=== PATIENT | female | born 1940 | race Caucasian/White ===

== ENCOUNTER 2022-07-13 11:51 | Inpatient (IN) ==
[2022-07-13 17:33] LABS: PCO2 Arterial 29 mmHg (35-45); PO2 Arterial 66 mmHg (80-100)
[2022-07-13 17:45] LABS: Albumin 3.5 g/dL (3.2-5.2); Calcium 9.2 mg/dL (8.6-10.3); Potassium 4.3 mmol/L (3.5-5.0); Total Bilirubin 0.9 mg/dL (0.2-1.0)
[2022-07-13 17:51] LABS: Albumin/Globulin Ratio 1.4 (1-3); Creatinine, Serum 1.83 mg/dL (0.51-0.95); Globulin 2.5 g/dL (2-4); eGFR CKD-EPI 27.6 (>60)
[2022-07-13 20:08] LABS: ABS Basophils 0.1 10^3/ul (0-0.2); ABS Lymphocytes 1.5 10^3/ul (1.0-4.8); ABS Monocytes 1.1 10^3/ul (0-0.8); ABS Neutrophils 8.5 10^3/ul (1.5-7.7); Eosinophil % 0.1 %; Hematocrit 38 % (35-47); Hemoglobin 12.4 g/dL (12.0-16.0); Lymphocyte % 13.2 %; Mean Corpuscular HGB Conc 33 g/dL (31-36); Mean Corpuscular Hemoglobin 30 pg (27-31); Mean Corpuscular Volume 93 fL (80-97); Mean Platelet Volume 8.3 fL (7.4-10.4); Platelet Count 281 10^3/uL (150-450); Red Cell Distribution Width 16 % (10-15); White Blood Count 11.1 10^3/uL (3.5-10.8)
[2022-07-13 20:32] LABS: High Sensitivity Troponin 1 Hr 11 pg/mL (<15)
[2022-07-13] MEDS ORDERED: Heparin DRIP 25,000 UNITS BAG 25,000 UNITS/500 ML BAG IV SCH (20:45)
[2022-07-13 21:33] LABS: ABS Basophils 0.1 10^3/ul (0-0.2); ABS Lymphocytes 1.7 10^3/ul (1.0-4.8); ABS Monocytes 1.1 10^3/ul (0-0.8); Eosinophil % 0.1 %; Hematocrit 38 % (35-47); Hemoglobin 12.6 g/dL (12.0-16.0); Lymphocyte % 15.8 %; Mean Corpuscular HGB Conc 33 g/dL (31-36); Mean Corpuscular Hemoglobin 31 pg (27-31); Mean Corpuscular Volume 94 fL (80-97); Mean Platelet Volume 8.6 fL (7.4-10.4); Platelet Count 280 10^3/uL (150-450); Red Blood Count 4.07 10^6 /uL (3.70-4.87); Red Cell Distribution Width 16 % (10-15); White Blood Count 10.9 10^3/uL (3.5-10.8)
[2022-07-13] MEDS ORDERED: Heparin 5000 UNITS/ML 1 mL VIAL IV SCH (22:00)
[2022-07-13] MEDS ORDERED: Lactated Ringers 1000 ml BAG 1,000 ML IV ONE (22:03)
[2022-07-13 22:22] LABS: eGFR CKD-EPI 24.8 (>60)
[2022-07-13 22:45] LABS: Magnesium 2.3 mg/dL (1.9-2.7)
[2022-07-13 23:04] LABS: TSH Ultra Thyroid Stim Horm 3.5 mcIU/mL (0.34-5.60)
[2022-07-14 02:15] LABS: C Reactive Protein 11.89 mg/L (<8.01)
[2022-07-14 12:03] LABS: ABS Basophils 0.1 10^3/ul (0-0.2); ABS Eosinophils 0.1 10^3/ul (0-0.6); ABS Lymphocytes 2.2 10^3/ul (1.0-4.8); ABS Monocytes 1.4 10^3/ul (0-0.8); ABS Neutrophils 8.8 10^3/ul (1.5-7.7); Eosinophil % 0.6 %; Hematocrit 41 % (35-47); Lymphocyte % 17.2 %; Mean Corpuscular HGB Conc 32 g/dL (31-36); Mean Corpuscular Hemoglobin 30 pg (27-31); Mean Corpuscular Volume 94 fL (80-97); Mean Platelet Volume 8.7 fL (7.4-10.4); Nucleated Red Blood Cells % 0.1; Platelet Count 303 10^3/uL (150-450); Red Blood Count 4.31 10^6 /uL (3.70-4.87); Red Cell Distribution Width 16 % (10-15); White Blood Count 12.6 10^3/uL (3.5-10.8)
[2022-07-14 12:44] LABS: Calcium 8.9 mg/dL (8.6-10.3); Creatinine, Serum 2.43 mg/dL (0.51-0.95); Phosphorus 6.2 mg/dL (2.5-5.0); Potassium 4.4 mmol/L (3.5-5.0); eGFR CKD-EPI 19.6 (>60)
[2022-07-14 13:27] LABS: Urine Appearance Cloudy; Urine Bilirubin Negative (Negative); Urine Blood 2+ (Negative); Urine Color Amber; Urine Glucose Negative (Negative); Urine Ketones Trace (Negative); Urine Nitrite Negative (Negative); Urine Protein 2+(100 mg/dL) (Negative); Urine Specific Gravity 1.026 (1.002-1.030); Urine Urobilinogen Negative (Negative)
[2022-07-14 13:43] LABS: Urine Bacteria 2+ (Absent); Urine Red Blood Cell 3+(>10/hpf) (Absent); Urine Squamous Epithelial Cell Present (Absent); Urine White Blood Cell 3+(>20/hpf) (Absent)
[2022-07-14] MEDS ORDERED: Lactated Ringers 1000 ml BAG 1,000 ML IV ONE ×2 (14:19→15:51)
[2022-07-14] MEDS ORDERED: Lorazepam PYXIS KEY PRN (14:55)
[2022-07-14] MEDS ORDERED: LORazepam 2 mg VIAL 1 ml IV PUSH ONE (14:55)
[2022-07-14] MEDS ORDERED: LORazepam 2 mg VIAL 1 ml ONE (14:58)
[2022-07-14] MEDS ORDERED: Lorazepam PYXIS KEY ONE (14:58)
[2022-07-14] MEDS: Lactated Ringers 1000 ml BAG 1,000 ML IV SCH ×2 (15:50→23:40)
[2022-07-14] MEDS: Latanoprost 0.005% 2.5 ml BTL BOTH EYES SCH (20:24)
[2022-07-15 04:32] LABS: ABS Basophils 0.1 10^3/ul (0-0.2); ABS Lymphocytes 1.9 10^3/ul (1.0-4.8); ABS Monocytes 1.2 10^3/ul (0-0.8); ABS Neutrophils 8.2 10^3/ul (1.5-7.7); Eosinophil % 0.4 %; Hematocrit 34 % (35-47); Lymphocyte % 17.1 %; Mean Corpuscular HGB Conc 32 g/dL (31-36); Mean Corpuscular Hemoglobin 30 pg (27-31); Mean Corpuscular Volume 94 fL (80-97); Mean Platelet Volume 8.1 fL (7.4-10.4); Nucleated Red Blood Cells % 0.1; Platelet Count 266 10^3/uL (150-450); Red Blood Count 3.65 10^6 /uL (3.70-4.87); Red Cell Distribution Width 16 % (10-15); White Blood Count 11.4 10^3/uL (3.5-10.8)
[2022-07-15 05:12] LABS: Calcium 8.6 mg/dL (8.6-10.3); Creatinine, Serum 2.57 mg/dL (0.51-0.95); Magnesium 2.2 mg/dL (1.9-2.7); Phosphorus 6.3 mg/dL (2.5-5.0); Potassium 4.5 mmol/L (3.5-5.0); eGFR CKD-EPI 18.3 (>60)
[2022-07-15] MEDS: Lactated Ringers 1000 ml BAG 1,000 ML IV SCH ×2 (07:52→16:16)
[2022-07-15] MEDS ORDERED: Morphine 2 MG/ML SYRINGE IV ONE (11:05)
[2022-07-15] MEDS ORDERED: Heparin 5000 UNITS/ML 1 mL VIAL IV PRN (11:06)
[2022-07-15] MEDS ORDERED: Ondansetron 4 mg VIAL 2 MG/ML 2 ml VIAL IV PRN (11:17)
[2022-07-15] MEDS: Heparin DRIP 25,000 UNITS BAG 25,000 UNITS/500 ML BAG IV SCH (11:50)
[2022-07-15] MEDS ORDERED: Morphine 2 MG/ML SYRINGE ONE (14:04)
[2022-07-15] MEDS: Morphine 2 MG/ML SYRINGE IV PRN ×2 (14:05→19:59)
[2022-07-15 16:46] LABS: INR 1.73 (0.88-1.18)
[2022-07-15 17:40] LABS: Calcium 8.3 mg/dL (8.6-10.3); Potassium 4.3 mmol/L (3.5-5.0)
[2022-07-15 17:42] LABS: Creatinine, Serum 2.54 mg/dL (0.51-0.95); eGFR CKD-EPI 18.6 (>60)
[2022-07-15] MEDS: Latanoprost 0.005% 2.5 ml BTL BOTH EYES SCH (19:50)
[2022-07-15] MEDS: PTO: Multivitamins/Mins AREDS2 (NF) CAP PO SCH (19:50)
[2022-07-16] MEDS: Lactated Ringers 1000 ml BAG 1,000 ML IV SCH ×3 (00:16→17:56)
[2022-07-16 05:29] LABS: Hematocrit 34 % (35-47); Hemoglobin 10.5 g/dL (12.0-16.0); Mean Corpuscular HGB Conc 31 g/dL (31-36); Mean Corpuscular Hemoglobin 30 pg (27-31); Mean Corpuscular Volume 94 fL (80-97); Mean Platelet Volume 7.9 fL (7.4-10.4); Platelet Count 311 10^3/uL (150-450); Red Blood Count 3.56 10^6 /uL (3.70-4.87); Red Cell Distribution Width 16 % (10-15); White Blood Count 11.3 10^3/uL (3.5-10.8)
[2022-07-16 05:45] LABS: ABS Basophils 0.1 10^3/ul (0-0.2); ABS Eosinophils 0.1 10^3/ul (0-0.6); ABS Lymphocytes 1.4 10^3/ul (1.0-4.8); ABS Monocytes 1.3 10^3/ul (0-0.8); ABS Neutrophils 8.5 10^3/ul (1.5-7.7); Eosinophil % 0.6 %; Lymphocyte % 11.9 %; Nucleated Red Blood Cells % 0.1
[2022-07-16 05:57] LABS: Calcium 8.6 mg/dL (8.6-10.3); Creatinine, Serum 2.48 mg/dL (0.51-0.95); Potassium 4.7 mmol/L (3.5-5.0); eGFR CKD-EPI 19.1 (>60)
[2022-07-16] MEDS: PTO: Multivitamins/Mins AREDS2 (NF) CAP PO SCH ×2 (09:11→20:47)
[2022-07-16] MEDS ORDERED: Bismuth Subsalicylate (BTL) 525 MG/30 ML (BULK BTL) PO PRN (11:01)
[2022-07-16 13:03] LABS: Urine Chloride Concentration < 22 mmol/L; Urine Potassium Concentration 80.1 mmol/L; Urine Sodium Concentration < 18 mmol/L
[2022-07-16] MEDS ORDERED: Lidocaine PATCH 5% PATCH TRANSDERM ONE (20:29)
[2022-07-16] MEDS: Latanoprost 0.005% 2.5 ml BTL BOTH EYES SCH (20:48)
[2022-07-16] MEDS: Heparin DRIP 25,000 UNITS BAG 25,000 UNITS/500 ML BAG IV SCH (20:55)
[2022-07-17] MEDS: Morphine 2 MG/ML SYRINGE IV PRN ×3 (01:17→11:15)
[2022-07-17] MEDS: Lactated Ringers 1000 ml BAG 1,000 ML IV SCH ×3 (02:18→19:34)
[2022-07-17 06:44] LABS: Hematocrit 34 % (35-47); Hemoglobin 10.7 g/dL (12.0-16.0); Mean Corpuscular HGB Conc 32 g/dL (31-36); Mean Corpuscular Hemoglobin 30 pg (27-31); Mean Corpuscular Volume 96 fL (80-97); Mean Platelet Volume 8.2 fL (7.4-10.4); Platelet Count 319 10^3/uL (150-450); Red Blood Count 3.55 10^6 /uL (3.70-4.87); Red Cell Distribution Width 16 % (10-15); White Blood Count 13.3 10^3/uL (3.5-10.8)
[2022-07-17 06:46] LABS: ABS Basophils 0.1 10^3/ul (0-0.2); ABS Lymphocytes 1.8 10^3/ul (1.0-4.8); ABS Monocytes 1.1 10^3/ul (0-0.8); ABS Neutrophils 10.2 10^3/ul (1.5-7.7); Eosinophil % 0.3 %; Lymphocyte % 13.7 %; Nucleated Red Blood Cells % 0.1
[2022-07-17 07:15] LABS: CO2 Carbon Dioxide 17 mmol/L (22-32); Calcium 8.7 mg/dL (8.6-10.3); Chloride 102 mmol/L (101-111); Sodium 132 mmol/L (135-145)
[2022-07-17 07:18] LABS: Anion Gap 13 mmol/L (2-11)
[2022-07-17 07:20] LABS: Blood Urea Nitrogen 59 mg/dL (6-24); Creatinine, Serum 2.86 mg/dL (0.51-0.95); Glucose 120 mg/dL (70-100); eGFR CKD-EPI 16.1 (>60)
[2022-07-17 07:28] LABS: Potassium, Whole Blood 4.6 mmol/L (3.4-4.5)
[2022-07-17] MEDS: PTO: Multivitamins/Mins AREDS2 (NF) CAP PO SCH ×2 (09:05→21:49)
[2022-07-17 17:20] LABS: ALT 14 U/L (7-52); Albumin 3.3 g/dL (3.2-5.2); Albumin/Globulin Ratio 1.4 (1-3); Alkaline Phosphatase 60 U/L (35-149); Globulin 2.3 g/dL (2-4); Total Protein 5.6 g/dL (6.4-8.9)
[2022-07-17 17:32] LABS: Body Fluid WBC 2165 /mcL
[2022-07-17 17:55] LABS: Body Fluid Mono 9 %; Body Fluid NRBC 2; Body Fluid Other Cells 1; Body Fluid Total Cells Counted 100; Body Fluid Variant Lymph 1 %
[2022-07-17 18:16] LABS: Rheumatoid Factor 11 IU/mL (<15)
[2022-07-17 18:19] LABS: Body Fluid Appearance Bloody; Body Fluid Color Red; Body Fluid Source Peritonial Fluid
[2022-07-17 18:27] LABS: Indirect Bilirubin 0.7 mg/dL (0.3-1.0); Potassium Redraw 5.3 mmol/L (3.5-5.0)
[2022-07-17] MEDS: Furosemide 100 mg/10 ml IV VIAL IV SCH ×2 (19:31→20:22)
[2022-07-17] MEDS: Latanoprost 0.005% 2.5 ml BTL BOTH EYES SCH (21:49)
[2022-07-18 05:26] LABS: Hematocrit 26 % (35-47); Hemoglobin 8.3 g/dL (12.0-16.0); Mean Corpuscular HGB Conc 32 g/dL (31-36); Mean Corpuscular Hemoglobin 30 pg (27-31); Mean Corpuscular Volume 93 fL (80-97); Mean Platelet Volume 8.3 fL (7.4-10.4); Platelet Count 251 10^3/uL (150-450); Red Blood Count 2.76 10^6 /uL (3.70-4.87); Red Cell Distribution Width 15 % (10-15); White Blood Count 11.5 10^3/uL (3.5-10.8)
[2022-07-18 06:05] LABS: Calcium 7.9 mg/dL (8.6-10.3)
[2022-07-18 06:07] LABS: Potassium 5.4 mmol/L (3.5-5.0)
[2022-07-18 06:11] LABS: Creatinine, Serum 2.87 mg/dL (0.51-0.95); eGFR CKD-EPI 16.1 (>60)
[2022-07-18 06:14] LABS: ABS Basophils 0.1 10^3/ul (0-0.2); ABS Eosinophils 0.2 10^3/ul (0-0.6); ABS Lymphocytes 1.7 10^3/ul (1.0-4.8); ABS Monocytes 1.3 10^3/ul (0-0.8); ABS Neutrophils 7.9 10^3/ul (1.5-7.7); Eosinophil % 1.8 %; Lymphocyte % 15.1 %; Nucleated Red Blood Cells % 0.1
[2022-07-18] MEDS ORDERED: Furosemide 40 mg/4 ml IV VIAL IV SLOW PU ONE ×2 (07:29→14:41)
[2022-07-18] MEDS ORDERED: LORazepam 2 mg VIAL 1 ml IV PUSH PRN (07:53)
[2022-07-18] MEDS ORDERED: Lorazepam PYXIS KEY PRN (07:53)
[2022-07-18 08:54] LABS: UR Microalbumin (mg/L) < 15.0 mg/L; Urine Creatinine 126.42 mg/dL
[2022-07-18 09:08] LABS: Calcium 8.2 mg/dL (8.6-10.3); Creatinine, Serum 2.83 mg/dL (0.51-0.95); eGFR CKD-EPI 16.3 (>60)
[2022-07-18 09:12] LABS: Potassium 5.2 mmol/L (3.5-5.0)
[2022-07-18] MEDS: PTO: Multivitamins/Mins AREDS2 (NF) CAP PO SCH ×2 (09:51→20:19)
[2022-07-18] MEDS: Furosemide 100 mg/10 ml IV 100 MG in NS 0.9% 100 ml BAG 90 ML IV SCH ×2 (10:04→21:15)
[2022-07-18 10:57] LABS: % Iron Saturation 11 % (15-55); Iron 26 ug/dL (50-212); Total Iron Binding Capacity 234 mcg/dL (250-450); Transferrin 167 mg/dL (203-362); Unsaturated Iron Binding 208 ug/dL
[2022-07-18 11:18] LABS: Ferritin 46.7 ng/mL (11-307)
[2022-07-18 11:22] LABS: Vitamin B12 > 1450 pg/mL (180-914)
[2022-07-18 11:53] LABS: Corrected Retic Count 2.5 % (0.5-1.5); Hematocrit for Retic CNT 27 % (35-47); Immature Retic Fraction 0.56; RBC Retic Count 2.81 10^6/uL (3.70-4.87)
[2022-07-18 14:55] LABS: Hematocrit 27 % (35-47); Hemoglobin 7.7 g/dL (12.0-16.0); Mean Corpuscular HGB Conc 29 g/dL (31-36); Mean Corpuscular Hemoglobin 28 pg (27-31); Mean Corpuscular Volume 96 fL (80-97); Mean Platelet Volume 8.8 fL (7.4-10.4); Platelet Count 144 10^3/uL (150-450); Red Blood Count 2.76 10^6 /uL (3.70-4.87); Red Cell Distribution Width 16 % (10-15); White Blood Count 11.6 10^3/uL (3.5-10.8)
[2022-07-18 15:05] LABS: Calcium 7.8 mg/dL (8.6-10.3); Potassium 4.5 mmol/L (3.5-5.0)
[2022-07-18 15:10] LABS: Creatinine, Serum 2.75 mg/dL (0.51-0.95); eGFR CKD-EPI 16.9 (>60)
[2022-07-18 17:09] LABS: Urine Creatinine Concentration 127.93 mg/dL
[2022-07-18] MEDS: Latanoprost 0.005% 2.5 ml BTL BOTH EYES SCH (20:19)
[2022-07-18 20:45] LABS: Hematocrit 25 % (35-47); Mean Corpuscular HGB Conc 32 g/dL (31-36); Mean Corpuscular Hemoglobin 30 pg (27-31); Mean Corpuscular Volume 93 fL (80-97); Mean Platelet Volume 7.9 fL (7.4-10.4); Platelet Count 257 10^3/uL (150-450); Red Blood Count 2.68 10^6 /uL (3.70-4.87); Red Cell Distribution Width 15 % (10-15); White Blood Count 11.5 10^3/uL (3.5-10.8)
[2022-07-18 21:30] LABS: Calcium 7.8 mg/dL (8.6-10.3); Creatinine, Serum 2.6 mg/dL (0.51-0.95); Potassium 4.5 mmol/L (3.5-5.0); eGFR CKD-EPI 18.1 (>60)
[2022-07-19 04:10] LABS: Hematocrit 24 % (35-47); Hemoglobin 7.8 g/dL (12.0-16.0); Mean Corpuscular HGB Conc 32 g/dL (31-36); Mean Corpuscular Hemoglobin 30 pg (27-31); Mean Corpuscular Volume 93 fL (80-97); Mean Platelet Volume 8.2 fL (7.4-10.4); Platelet Count 234 10^3/uL (150-450); Red Blood Count 2.59 10^6 /uL (3.70-4.87); Red Cell Distribution Width 16 % (10-15); White Blood Count 9.9 10^3/uL (3.5-10.8)
[2022-07-19 04:44] LABS: Albumin 2.5 g/dL (3.2-5.2); Albumin/Globulin Ratio 1.8 (1-3); Calcium 7.7 mg/dL (8.6-10.3); Creatinine, Serum 2.35 mg/dL (0.51-0.95); Globulin 1.4 g/dL (2-4); Potassium 4.2 mmol/L (3.5-5.0); Total Bilirubin 0.9 mg/dL (0.2-1.0); Total Protein 3.9 g/dL (6.4-8.9); eGFR CKD-EPI 20.4 (>60)
[2022-07-19] MEDS ORDERED: Lorazepam PYXIS KEY PRN (07:22)
[2022-07-19] MEDS ORDERED: LORazepam 2 mg VIAL 1 ml IV PUSH PRN (07:22)
[2022-07-19] MEDS: Furosemide 100 mg/10 ml IV 100 MG in NS 0.9% 100 ml BAG 90 ML IV SCH ×2 (07:53→17:32)
[2022-07-19] MEDS: Iron Sucrose 200 MG in NS 0.9% 100 ml IVPB SCH (08:17)
[2022-07-19] MEDS: PTO: Multivitamins/Mins AREDS2 (NF) CAP PO SCH ×2 (08:17→21:53)
[2022-07-19] MEDS ORDERED: Ferric Gluconate IV 125 MG in NS 0.9% 100 ml BAG 100 ML IVPB SCH (09:00)
[2022-07-19] MEDS ORDERED: Iron Sucrose 20 MG/ML 5 ML VIAL IV PUSH SCH (09:00)
[2022-07-19 10:27] LABS: Urine Appearance Clear; Urine Bilirubin Negative (Negative); Urine Blood Negative (Negative); Urine Color Straw; Urine Glucose Negative (Negative); Urine Ketones Negative (Negative); Urine Nitrite Negative (Negative); Urine Protein Negative (Negative); Urine Specific Gravity 1.005 (1.002-1.030); Urine Urobilinogen Negative (Negative)
[2022-07-19] MEDS ORDERED: Ondansetron 4 mg VIAL 2 MG/ML 2 ml VIAL IV PRN (11:23)
[2022-07-19 13:12] LABS: Fluid Type, Amylase Peritoneal
[2022-07-19 13:14] LABS: Albumin, BF 2.7 g/dL; Fluid Type, Albumin Peritoneal; Fluid Type, Protein, Total Peritoneal; Fluid Type: Peritoneal; Glucose, BF 101 mg/dL; Total Protein, BF 3.8 g/dL; Triglycerides (BF) 30 mg/dL
[2022-07-19 14:51] LABS: Complement C3 115 mg/dL (75 - 175)
[2022-07-19 16:34] LABS: Hematocrit 26 % (35-47); Hemoglobin 8.4 g/dL (12.0-16.0); Mean Corpuscular HGB Conc 33 g/dL (31-36); Mean Corpuscular Hemoglobin 31 pg (27-31); Mean Corpuscular Volume 93 fL (80-97); Mean Platelet Volume 7.9 fL (7.4-10.4); Platelet Count 225 10^3/uL (150-450); Red Blood Count 2.75 10^6 /uL (3.70-4.87); Red Cell Distribution Width 16 % (10-15); White Blood Count 11.3 10^3/uL (3.5-10.8)
[2022-07-19 17:10] LABS: Calcium 7.9 mg/dL (8.6-10.3); Creatinine, Serum 1.99 mg/dL (0.51-0.95); Magnesium 1.8 mg/dL (1.9-2.7); Potassium 4.6 mmol/L (3.5-5.0); eGFR CKD-EPI 24.9 (>60)
[2022-07-19] MEDS: Latanoprost 0.005% 2.5 ml BTL BOTH EYES SCH (21:53)
[2022-07-20] MEDS: Furosemide 100 mg/10 ml IV 100 MG in NS 0.9% 100 ml BAG 90 ML IV SCH ×2 (03:46→04:46)
[2022-07-20 06:39] LABS: Calcium 7.7 mg/dL (8.6-10.3); Potassium 3.8 mmol/L (3.5-5.0)
[2022-07-20 06:45] LABS: Creatinine, Serum 1.67 mg/dL (0.51-0.95); eGFR CKD-EPI 30.8 (>60)
[2022-07-20 06:48] LABS: ABS Basophils 0.1 10^3/ul (0-0.2); ABS Eosinophils 0.2 10^3/ul (0-0.6); ABS Lymphocytes 1.3 10^3/ul (1.0-4.8); ABS Monocytes 1.1 10^3/ul (0-0.8); ABS Neutrophils 6.6 10^3/ul (1.5-7.7); Eosinophil % 1.7 %; Hematocrit 27 % (35-47); Hemoglobin 8.7 g/dL (12.0-16.0); Lymphocyte % 14.4 %; Mean Corpuscular HGB Conc 32 g/dL (31-36); Mean Corpuscular Hemoglobin 31 pg (27-31); Mean Corpuscular Volume 96 fL (80-97); Mean Platelet Volume 8.1 fL (7.4-10.4); Platelet Count 216 10^3/uL (150-450); Red Blood Count 2.81 10^6 /uL (3.70-4.87); Red Cell Distribution Width 16 % (10-15); White Blood Count 9.3 10^3/uL (3.5-10.8)
[2022-07-20] MEDS: Iron Sucrose 200 MG in NS 0.9% 100 ml IVPB SCH (09:03)
[2022-07-20] MEDS: PTO: Multivitamins/Mins AREDS2 (NF) CAP PO SCH ×2 (09:03→21:02)
[2022-07-20] MEDS ORDERED: Magnesium Sulfate 2 gm BAG 2 GM/50 ML BAG IVPB ONE (09:45)
[2022-07-20 10:53] LABS: Rapid COVID-19 Molecular Undetected (Undetected)
[2022-07-20 10:54] LABS: Influenza A Molecular Negative (Negative); Influenza B Molecular Negative (Negative)
[2022-07-20 11:55] LABS: Albumin 2.2 g/dL (3.4-4.7); Albumin/Globulin Ratio 0.83; Gamma Globulin 0.5 g/dL (0.6-1.6); Total Protein(PEP) 4.9 g/dL (6.3 - 7.9)
[2022-07-20 15:31] LABS: C-ANCA Negative (Negative); P-ANCA Negative (Negative)
[2022-07-20 16:17] LABS: Hematocrit 29 % (35-47); Hemoglobin 9.1 g/dL (12.0-16.0); Mean Corpuscular HGB Conc 32 g/dL (31-36); Mean Corpuscular Hemoglobin 30 pg (27-31); Mean Corpuscular Volume 93 fL (80-97); Platelet Count 234 10^3/uL (150-450); Red Blood Count 3.09 10^6 /uL (3.70-4.87); Red Cell Distribution Width 16 % (10-15); White Blood Count 11.1 10^3/uL (3.5-10.8)
[2022-07-20 17:06] LABS: Creatinine, Serum 1.67 mg/dL (0.51-0.95); Magnesium 2.1 mg/dL (1.9-2.7); eGFR CKD-EPI 30.8 (>60)
[2022-07-20] MEDS: Latanoprost 0.005% 2.5 ml BTL BOTH EYES SCH (21:01)
[2022-07-21 07:06] LABS: Hematocrit 28 % (35-47); Hemoglobin 9.1 g/dL (12.0-16.0); Mean Corpuscular HGB Conc 32 g/dL (31-36); Mean Corpuscular Hemoglobin 30 pg (27-31); Mean Corpuscular Volume 94 fL (80-97); Mean Platelet Volume 7.9 fL (7.4-10.4); Platelet Count 241 10^3/uL (150-450); Red Blood Count 3.01 10^6 /uL (3.70-4.87); Red Cell Distribution Width 16 % (10-15); White Blood Count 9.8 10^3/uL (3.5-10.8)
[2022-07-21 07:08] LABS: Calcium 7.9 mg/dL (8.6-10.3); Magnesium 1.9 mg/dL (1.9-2.7); Potassium 3.6 mmol/L (3.5-5.0)
[2022-07-21 07:14] LABS: Creatinine, Serum 1.46 mg/dL (0.51-0.95); eGFR CKD-EPI 36.2 (>60)
[2022-07-21] MEDS ORDERED: Polyethylene Glycol 3350 17 GM PACKET PO SCH (08:32)
[2022-07-21] MEDS: PTO: Multivitamins/Mins AREDS2 (NF) CAP PO SCH (08:52)
[2022-07-21] MEDS: Iron Sucrose 200 MG in NS 0.9% 100 ml IVPB SCH (08:54)
[2022-07-21 12:58] VITALS: BP 104/67
[2022-07-21] MEDS ORDERED: Senna TAB 8.6 mg TAB PO SCH (21:00)
== END 2022-07-21 11:00 | DRG 189 ==
LOC: EDHOLD 11:51 → ED 11:51 → SUATTDRO 22:07 → OBSVTOIN 22:26 → ICU 07-14 02:39 → MEDTELE 07-16 16:36
PROVIDERS: ADMIT Internal Medicine; ATTEND Student in an Organized Health Care Education/Training Program